=== PATIENT | female | born 1995 | race Caucasian/White ===

== ENCOUNTER 2020-07-12 05:22 | Inpatient (IN) | payer MEDICAID, OTHER ==
[~2020-07-12] VITALS: Ht 152.4 cm; Wt 51.5 kg
[2020-07-12] MEDS ORDERED: POLYETHYLENE GLYCOL 17 GM PACKET PO PRN (07:00)
[2020-07-12] MEDS ORDERED: DOCUSATE 100 MG CAPSULE PO PRN (07:00)
[2020-07-12] MEDS ORDERED: BISACODYL 10 MG SUPP PR PRN (07:00)
[2020-07-12] MEDS ORDERED: SERT50TA PO (09:48)
[2020-07-12 09:50] VITALS: BP 159/104
[2020-07-12 10:58] LABS: BASOPHILS % (AUTO) 1 % (0-1); EOSINOPHILS % (AUTO) 1 % (1-7); LYMPHOCYTES % (AUTO) 27 % (22-44); MEAN CORPUSCULAR HEMOGLOBIN 30.8 pg (27.0-34.8); MEAN PLATELET VOLUME 8.5 fL (7.4-10.4); MONOCYTES % (AUTO) 8 % (2-9); NEUTROPHILS % (AUTO) 63 % (42-75); PLATELET COUNT 261 x10^3/uL (130-400); RED BLOOD COUNT 5.23 x10^6/uL (3.82-5.3); RED CELL DISTRIBUTION WIDTH 14.4 % (9.6-15.2)
[2020-07-12 11:10] LABS: ALANINE AMINOTRANSFERASE 19 U/L (12-78); ALBUMIN 4.5 g/dL (3.4-5.0); ANION GAP 3 mmol/L (5-15); CALCIUM 9.4 mg/dL (8.5-10.1); CHLORIDE 112 mmol/L (98-107)
[2020-07-12 11:41] LABS: CREATININE 0.92 mg/dL (0.55-1.02)
[2020-07-12 11:42] LABS: ALKALINE PHOSPHATASE 61 U/L (45-117); BILIRUBIN,TOTAL 0.6 mg/dL (0.2-1.0); FREE T4 (FREE THYROXINE) 1.04 ng/dL (0.76-1.46); TOTAL PROTEIN 7.8 g/dL (6.4-8.2)
[2020-07-12] MEDS: ACETAMINOPHEN 325 MG TABLET PO PRN (14:22)
[2020-07-12] MEDS: BACLOFEN 10 MG TABLET PO SCH ×2 (16:12→20:57)
[2020-07-12] MEDS ORDERED: NICOTINE 21 MG/24 HR PATCH.TD24 ONE (17:54)
[2020-07-12] MEDS ORDERED: NICOTINE 21 MG/24 HR PATCH.TD24 TD ONE (18:00)
[2020-07-12] MEDS: SERTRALINE 50MG TABLET PO SCH (19:52)
[2020-07-12] MEDS: LORazepam 0.5MG TABLET PO PRN (19:53)
[2020-07-12 20:04] VITALS: BP 120/83
[2020-07-13 05:52] LABS: CHOL/HDL RATIO 4.8; LDL/HDL RATIO 3.2 (0.5-3.0)
[2020-07-13 07:41] VITALS: BP 125/80
[2020-07-13] MEDS: BACLOFEN 10 MG TABLET PO SCH ×3 (08:36→20:46)
[2020-07-13] MEDS: NICOTINE 21 MG/24 HR PATCH.TD24 TD SCH (08:36)
[2020-07-13] MEDS: SERTRALINE 50MG TABLET PO SCH (08:36)
[2020-07-13] MEDS ORDERED: NICOTINE 14MG/24 HR PATCH.TD24 TD ONE (09:00)
[2020-07-13 09:58] LABS: MICROSCOPIC INDICATED
[2020-07-13] MEDS: FLUOXETINE 10 MG CAP PO SCH (11:37)
[2020-07-13] MEDS: LORazepam 0.5MG TABLET PO PRN (11:38)
[2020-07-13] MEDS: ACETAMINOPHEN 325 MG TABLET PO PRN (12:25)
[2020-07-13 20:27] VITALS: BP 109/75
[2020-07-14 07:27] VITALS: BP 126/82
[2020-07-14] MEDS: BACLOFEN 10 MG TABLET PO SCH ×3 (08:20→21:05)
[2020-07-14] MEDS: FLUOXETINE 10 MG CAP PO SCH (08:20)
[2020-07-14] MEDS: NICOTINE 21 MG/24 HR PATCH.TD24 TD SCH (08:22)
[2020-07-14] MEDS: LORazepam 0.5MG TABLET PO PRN ×2 (09:25→20:04)
[2020-07-14 19:46] VITALS: BP 123/89
[2020-07-15 07:13] VITALS: BP 112/78
[2020-07-15] MEDS: FLUOXETINE 10 MG CAP PO SCH (08:32)
[2020-07-15] MEDS: BACLOFEN 10 MG TABLET PO SCH ×3 (08:32→20:15)
[2020-07-15] MEDS: NICOTINE 21 MG/24 HR PATCH.TD24 TD SCH (08:33)
[2020-07-15] MEDS: QUETIAPINE 25MG TABLET PO PRN ×2 (11:09→20:19)
[2020-07-15 19:36] VITALS: BP 120/80
[2020-07-16 07:52] VITALS: BP 110/72
[2020-07-16] MEDS: BACLOFEN 10 MG TABLET PO SCH (08:23)
[2020-07-16] MEDS: FLUOXETINE 10 MG CAP PO SCH (08:23)
[2020-07-16] MEDS: NICOTINE 21 MG/24 HR PATCH.TD24 TD SCH (08:24)
[2020-07-16] MEDS ORDERED: QUET25TA7 PO (10:11)
[2020-07-16] MEDS ORDERED: NICO-587 TD (10:11)
[2020-07-16] MEDS ORDERED: FLUO10CA15 PO (10:11)
[2020-07-16] MEDS: QUETIAPINE 25MG TABLET PO PRN (13:44)
== END 2020-07-16 16:00 | disposition home or self-care (01) | DRG 751 ==
LOC: 3E 10:49
PROVIDERS: ADMIT Psychiatry & Neurology Psychosomatic Medicine; ATTEND Psychiatry & Neurology Psychosomatic Medicine
DX: F33.3 Major depressive disorder, recurrent, severe with psychotic symptoms (principal); R45.851 Suicidal ideations; F12.10 Cannabis abuse, uncomplicated; F17.200 Nicotine dependence, unspecified, uncomplicated; F41.9 Anxiety disorder, unspecified; F63.9 Impulse disorder, unspecified; M25.519 Pain in unspecified shoulder; I10 Essential (primary) hypertension; Z79.899 Other long term (current) drug therapy; Z91.041 Radiographic dye allergy status; Z88.0 Allergy status to penicillin; Z91.018 Allergy to other foods; Z72.89 Other problems related to lifestyle
CPT/HCPCS: 36415; 80053; 80061; 81001; 82607; 84439; 84443; 85025; 87086; 93005